=== PATIENT | female | born 1970 | race African-American/Black ===

== ENCOUNTER 2016-08-29 21:35 | Observation (INO) | payer OTHER ==
[~2016-08-29] VITALS: Ht 165.1 cm; Wt 84.8 kg
--- NOTE | ~2016-08-29 | EKG ---
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: [id number] : [id number] Requested By: Ivan Whitaker Order Number: [id number] MD: Be Oconnor Measurements Intervals [place] Rate: 76 P: 31 ME: 147 QRS: 41 QRSD: 101 T: 27 QT: 345 QTc: 388 Interpretive Statements Sinus rhythm Borderline T abnormalities, anterior leads Compared to ECG 07/29/1992 14:12:00 T-wave abnormality now present Electronically Signed On 08-31-2016 13:54:00 CDT by Be Oconnor [email or web address] <ELECTRONICALLY SIGNED> By: Be Oconnor MD, [facility] 08/31/16 1354 [id number] 47 Be Oconnor MD, [facility] /EPI
[~2016-08-29 21:35] MED LIST: ASPIR 8181 MG PO; EAR DROPS15 ML OT; HYDROCODONE-AP1 EAC6 PO; IBUPROFEN 600600 M1 PO; MEDROL DOSPAK21 TAB PO; MELOXICAM15 MG PO; METHADONE HCL5 MG PO; NORCO 5-325 TA1 EACH PO; OXYCONTIN10 M1 PO; PENICILLIN VK500 M1 PO; PERCOCET 7.5-31 EACH PO; PHENERGAN 25 MG25 M1 PO; TOPAMAX; TOPAMAX 25 MG T25 M1 PO; ZANTAC 150MG T150 M1 PO; ZOFRAN ODT4 MG PO
[2016-08-29 21:41] VITALS: BP 126/80
[2016-08-29 21:56] LABS: POC CA IONIZED 4.7 mg/dL (4.5-5.3); POC CREATININE 0.8 mg/dL (0.6-1.3); POC HEMOGLOBIN 13.9 g/dL (12.0-15.0); POC POTASSIUM 3.4 mmol/L (3.5-5.1)
[2016-08-29 22:03] LABS: ANION GAP 7 mmol/L (7-16); BUN 8 mg/dL (7-18); CHLORIDE 107 mmol/L (98-107); CO2 26 mmol/L (21-32); CREATININE 0.9 mg/dL (0.6-1.0); GLUCOSE 81 mg/dL (74-106); HEMATOCRIT 40.5 % (37.0-47.0); HEMOGLOBIN 13.3 gm/dL (12.0-15.0); MCH 29.3 pg (26.0-34.0); MCHC 32.8 g/dL (28.0-37.0); MCV 89.4 fL (80.0-100.0); POTASSIUM 3.7 mmol/L (3.5-5.1); RBC 4.53 mil/uL (4.20-5.00); RDW 14.2 % (10.5-14.5); SODIUM 140 mmol/L (136-145); WBC 10.6 thou/uL (4.0-11.0)
[2016-08-29 22:07] LABS: APTT 31.9 Seconds (24.5-32.8); PROTIME 10.6 Seconds (9.3-11.4)
[2016-08-29 22:11] LABS: TROPONIN-I < 0.04 ng/mL (<0.04-0.07)
[2016-08-29] MEDS ORDERED: DIAZEPAM 10 MG10 M2 OR (22:32)
[2016-08-29] MEDS ORDERED: OXYCODONE HCL20 M1 PO (22:33)
[2016-08-29 23:51] VITALS: BP 110/72
[2016-08-30] MEDS ORDERED: LEVOTHYROXINE0.05 MG PO (02:02)
[2016-08-30 04:00] VITALS: BP 94/59
[2016-08-30 05:55] LABS: CHOLESTEROL 137 mg/dL (<200); HDL CHOLESTEROL 43 mg/dL (>40); LDL CHOLESTEROL 83 mg/dL (<100); SERUM ASSESSMENT Clear; TC:HDL 3.2 Ratio (Not establshd); TRIGLYCERIDE 55 mg/dL (<150); VLDL 11 mg/dL (<40)
[2016-08-30 06:37] LABS: FOLIC ACID 12.1 ng/mL (8.6-58.9)
[2016-08-30 08:15] VITALS: BP 98/56
[2016-08-30 11:49] VITALS: BP 107/61
[2016-08-30 12:06] LABS: FREE T4 1.17 ng/dL (0.82-1.77)
[2016-08-30 16:30] VITALS: BP 112/62
[2016-08-30 21:16] VITALS: BP 107/52
[2016-08-31 00:07] LABS: GLYCOHEMOGLOBIN (HGB A1C) 5.5 % (4.8-5.6)
[2016-08-31 04:00] VITALS: BP 90/53
[2016-08-31 05:56] LABS: HEMATOCRIT 33.8 % (37.0-47.0); MCH 29.6 pg (26.0-34.0); MCHC 33.5 g/dL (28.0-37.0); MCV 88.4 fL (80.0-100.0); RBC 3.82 mil/uL (4.20-5.00); RDW 14.4 % (10.5-14.5); WBC 8.1 thou/uL (4.0-11.0)
[2016-08-31 05:58] LABS: HEMOGLOBIN 11.3 gm/dL (12.0-15.0)
[2016-08-31 06:12] LABS: CALCIUM 8.4 mg/dL (8.5-10.1); CREATININE 0.9 mg/dL (0.6-1.0); POTASSIUM 4.1 mmol/L (3.5-5.1)
[2016-08-31 07:31] VITALS: BP 93/46
[2016-08-31] MEDS ORDERED: ASPIRIN325 PO (10:00)
[2016-08-31 10:39] VITALS: BP 93/46
[2016-09-03 01:11] LABS: ALPHA TOCOPHEROL 6.3 mg/L (5.3-16.8)
== END 2016-08-31 14:14 | disposition home or self-care (01) ==
LOC: ER 21:35 → EROBS 22:56 → 4W 23:29
PROVIDERS: Emergency Medicine; Nurse Practitioner Family; Psychiatry & Neurology Neurology
DX: R29.810 Facial weakness (principal); F41.9 Anxiety disorder, unspecified; K21.9 Gastro-esophageal reflux disease without esophagitis; G43.909 Migraine, unspecified, not intractable, without status migrainosus; F17.210 Nicotine dependence, cigarettes, uncomplicated; Z88.8 Allergy status to other drugs, medicaments and biological substances; Z79.899 Other long term (current) drug therapy; Z83.3 Family history of diabetes mellitus; Z82.49 Family history of ischemic heart disease and other diseases of the circulatory system; Z82.5 Family history of asthma and other chronic lower respiratory diseases